=== PATIENT | female | born 1980 | race Caucasian/White ===

== ENCOUNTER → 2021-01-30 | Outpatient (CLI) | payer OTHER ==
[~2021-01-30] MED LIST: DULCOLAX10 MG PR; MILK OF MAGNESI30 ML PO; MIRALAX17 GM PO; STOOL SOFTENER100 MG PO
== END ==
LOC: KOH-I 08:21
DX: S92.341A Displaced fracture of fourth metatarsal bone, right foot, initial encounter for closed fracture (principal)
CPT/HCPCS: 73700

== ENCOUNTER 2021-07-31 21:01 | Emergency (ER) | payer OTHER ==
[2021-07-31 23:18] LABS: HEMOGLOBIN 13.2 gm/dl (12.3-15.3); RED BLOOD COUNT 4.13 M/UL (4.00-5.10); WHITE BLOOD COUNT 8.8 K/UL (4.5-11.0)
[2021-07-31 23:35] LABS: BUN/CREATININE RATIO 21 (0-10)
[2021-08-01] MEDS ORDERED: ONDANSETRON ODT4 MG SL (00:31)
[2021-08-01] MEDS ORDERED: PYRIDIUM200 MG PO (00:31)
[2021-08-01] MEDS ORDERED: CEFUROXIME500 MG PO (00:31)
[2021-08-01] MEDS ORDERED: IBUPROFEN800 MG PO (00:31)
== END 2021-08-01 01:26 | disposition home or self-care (01) ==
LOC: ER1 21:01
PROVIDERS: Physician Assistant
DX: N10 Acute pyelonephritis (principal); F17.200 Nicotine dependence, unspecified, uncomplicated; Z88.5 Allergy status to narcotic agent
CPT/HCPCS: 80053; 81001; 83605; 83690; 85025; 87040; 87077; 87086; 87186; 96374; 96375; 99284; J0696; J1885; J2270; J2405; Q9967

== ENCOUNTER 2021-11-12 17:09 | Emergency (ER) | payer OTHER ==
[~2021-11-12 17:09] MED LIST changes: +CEFUROXIME500 MG PO; +IBUPROFEN800 MG PO; +ONDANSETRON ODT4 MG SL; +PYRIDIUM200 MG PO
[2021-11-12 18:56] LABS: HEMOGLOBIN 13.2 gm/dl (12.3-15.3); RED BLOOD COUNT 4.1 M/UL (4.00-5.10); WHITE BLOOD COUNT 5.6 K/UL (4.5-11.0)
[2021-11-12 19:30] LABS: BUN/CREATININE RATIO 21 (0-10)
[2021-11-12] MEDS ORDERED: ZANAFLEX4 MG PO (21:52)
== END 2021-11-12 21:55 | disposition left against medical advice (07) ==
LOC: ER1 17:09
PROVIDERS: Nurse Practitioner
DX: M54.41 Lumbago with sciatica, right side (principal); G89.29 Other chronic pain; F17.210 Nicotine dependence, cigarettes, uncomplicated; Z90.710 Acquired absence of both cervix and uterus; Z88.5 Allergy status to narcotic agent
CPT/HCPCS: 80053; 80307; 81001; 85025; 85652; 86140; 96372; 99283; J1885